=== PATIENT | female | born 1990 | race Caucasian/White ===

== ENCOUNTER 2019-06-07 12:56 | Emergency (ER) | payer OTHER ==
[2019-06-07 13:03] VITALS: BMI 29.7
--- NOTE | 2019-06-07 13:06 | PDOC ---
Rapid Medical Evaluation Time Seen by Provider: 06/07/19 13:00 Medical Evaluation: Allergies Allergy/AdvReac Type Severity Reaction Status Date / Time No Known Allergies Allergy Verified 02/22/18 23:34 06/07/19 13:01 CC: Right pelvic pain with vaginal bleeding- Seen at [facility] and told she may have an ectopic . LMP- "end of April." Labs show Beta-776. TVUS- No IUP identified. Right ovarian cyst. PE: deferred Orders: labs, TVUS Patient will proceed to ED for further evaluation. 06/07/19 13:05 Discharge Disposition - Diagnosis Pelvic pain affecting in first trimester, antepartum - Referrals - Patient Instructions - Post Discharge Activity
--- NOTE | 2019-06-07 13:29 | PDOC ---
History of Present Illness - General Chief Complaint: Pain Stated Complaint: ECTOPIC PRENANCY/ ABD.PAIN Time Seen by Provider: 06/07/19 13:00 History Source: Patient Exam Limitations: No Limitations - History of Present Illness Initial Comments: 06/07/19 13:29 28y previously healthy F unknown gestational age presenting w RLQ pain and vaginal bleeding. Yesterday afternoon went to [facility] w lower AB pain and bleeding, dx with non-visualized ectopic w free fluid (see US read below), HCG-778, LMP end of April, was scheduled for surgery but left AMA d/t unsatisfaction w OBGYN attitude and slow speed. RLQ pelvic pain and vaginal bleeding restarted 6am this morning. Last ate/drank 2am today, did not take any pain meds. Denies fever, nausea/vomiting, chest pain, SOB, urinary symptoms. [facility] US read: US showed 3x2mm anechoic avascular focus in L uterine fundus at endometrial/ myometrial junction without yolk sac or pole. no definite intrauterine gestational sac visualized. Moderate free fluid in pelvic, R ovary hemorrhagic cyst [id number]. Ectopic could not be excluded No OBGYN Past History - Past Medical History Allergies/Adverse Reactions: Allergies Allergy/AdvReac Type Severity Reaction Status Date / Time No Known Allergies Allergy Verified 06/07/19 13:03 Home Medications: Ambulatory Orders Vitamins (Sjr) - 1 tab PO DAILY 02/22/18 Cardiac Disorders: Yes (MURMUR) COPD: No - Psycho Social/Smoking Cessation Hx Smoking History: Never smoked Review of Systems - Review of Systems Constitutional: No: Chills, Fever HEENTM: No: Eye Pain, Nose Pain, Throat Pain, Mouth Pain Respiratory: No: Cough, Shortness of Breath Cardiac (ROS): No: Chest Pain, Palpitations, Syncope ABD/GI: No: Abdominal Distended, Constipated, Diarrhea, Nausea, Vomiting : No: Burning, Dysuria, Discharge, Hematuria Musculoskeletal: No: Back Pain, Joint Pain Integumentary: No: Bruising, Flushing, Lesions Neurological: No: Headache, Seizure, Tingling Psychiatric: No: Anxiety, Depression, Stressors Endocrine: No: Excessive Sweating, Flushing, Intolerance to Cold, Intolerance to Heat Hematologic/Lymphatic: No: Anemia, Easy Bleeding *Physical Exam - Vital Signs Last Vital Signs Temp Pulse Resp BP Pulse Ox 97.7 F 96 H 18 99/70 99 06/07/19 12:59 06/07/19 12:59 06/07/19 12:59 06/07/19 12:59 06/07/19 12:59 - Physical Exam General Appearance: Yes: Nourished, Appropriately Dressed, Mild Distress HEENT: positive: EOMI, PUMA, Normal Voice, Hearing Grossly Normal. negative: Scleral Icterus (R), Scleral Icterus (L), Nasal Congestion, Rhinorrhea Respiratory/Chest: positive: Lungs Clear, Normal Breath Sounds. negative: Chest Tender, Respiratory Distress, Crackles, Rales, Rhonchi, Stridor, Wheezing Cardiovascular: positive: Regular Rhythm, Regular Rate, S1, S2. negative: Edema , Murmur Female Pelvic Exam: positive: normal external exam, cervical os closed, normal adnexa, vaginal bleeding. negative: CMT, discharge, lesions Gastrointestinal/Abdominal: positive: Normal Bowel Sounds, Tender (moderate R pelvic ), Flat, Soft. negative: Organomegaly, Distended, Guarding, Rebound, Mass Musculoskeletal: negative: CVA Tenderness (R), CVA Tenderness (L) Extremity: positive: Delayed Capillary Refill Integumentary: positive: Normal Color, Dry. negative: Rash, Bruising Neurologic: positive: coffee taster II-XII NML intact, Fully Oriented, Alert, Normal Mood/ Affect, Responsive. negative: Sensory Deficit, Confused, Disoriented ED Treatment Course - LABORATORY CBC & Chemistry Diagram: 06/07/19 14:20 06/07/19 14:20 Medical Decision Making - Medical Decision Making 06/07/19 13:53 EKG NSR, TWI V1-3, HR 80, QTc 440 US shows normal size uterus and endometrium thickness without evidence of viable intrauterine gestation, complex free fluid in cul-de-sac, complex R ovarian cyst 4.2x3.7x3.7cm likely hemorrhagic, simple L ovarian cyst 1.6x1.4x1.7cm pelvic exam - closed cervical os, gross blood in vaginal vault, no cervical/ ovarian tenderness HCG 976 --- 28y previously healthy F unknown gestational age presenting w RLQ pain and vaginal bleeding d/t ectopic vs viable IUP. HCG too low to visualize fetus. Low concern for ACS (no chest pain, SOB) vs miscarriage (rising HCG) vs UTI (clean UA). Given 1L NS, tylenol Consulted OBGYN Dr Willingham - advised too early HCG to visualize ectopic vs viable IUP, pt [facility] tomorrow to recheck HCG DC home w f/u tomorrow, OBGYN f/u Discharge - Discharge Information Problems reviewed: Yes Clinical Impression/Diagnosis: Pelvic pain affecting in first trimester, antepartum Condition: Stable Disposition: HOME - Admission No - Follow up/Referral Referrals: Pino Willingham MD [Staff Physician] - - Patient Discharge Instructions Patient Printed Discharge Instructions: DI for Ectopic Additional Instructions: You were seen for abdominal pain and bleeding. You are . Please follow up at the [facility] tomorrow to recheck your hormone levels. Follow up with the referred OBGYN Dr Willingham regarding your Take tylenol if you have pain Come back to the ED if you have worsening pain, lose consciousness, or trouble breathing - Post Discharge Activity
[2019-06-07] MEDS ORDERED: SODIUM CHLORIDE 0.9% 500 ML INFUS.BAG IV ONE (13:36)
[2019-06-07] MEDS ORDERED: ACETAMINOPHEN 1000 MG/100 ML VIAL (NON FORMULARY) IVPB ONE ×2 (13:36→15:53)
--- NOTE | 2019-06-07 15:30 | PDOC ---
Attending Attestation - Resident Resident Name: Camden Sorenson - ED Attending Attestation I have performed the following: I have examined & evaluated the patient, The case was reviewed & discussed with the resident, I agree w/resident's findings & plan - HPI HPI: 06/07/19 15:25 Healthy 28-year-old female s/p procedural VTOP March, LMP end of April /early May now presents from outside hospital ER with concern for ectopic . Patient began having suprapubic discomfort with vaginal bleeding over the last 2 or 3 days, increased pain yesterday so she went to outside hospital ED, where repeat was confirmed (patient reports that she did indeed have a negative test since her VTOP in March, so this positive test appears to be a new ) and ultrasound showed right hemorrhagic cyst which was concerning for ectopic , they were scheduling for OR but patient signed out and presents here for second opinion and reevaluation. Patient's pain has improved, vaginal bleeding is light without clots, no fevers or chills, no diffuse abdominal pain. - Physicial Exam PE: 06/07/19 15:27 Vital signs normal, heart rate 80 on my examination, blood pressure normal Well-appearing seated comfortably in stretcher, no jaundice or pallor, moist mucosa Heart is regular, lungs are clear Abdomen is soft/nondistended. Discomfort to palpation in the left lower quadrant, no guarding or rebound, no CVA tenderness, pelvic as noted - Medical Decision Making 06/07/19 15:30 Healthy 28-year-old female status post voluntary termination of in March, now with new with LMP about 4 weeks ago presents for evaluation of possible ectopic diagnosed at outside hospital. Given reported hCG levels, question hemorrhagic cyst with early versus ectopic, patient is hemodynamically stable here with benign abdominal exam. Check labs including hCG level Type and screen EBUS IV fluids Reassess Heart Score/ECG Review #1 ECG reviewed & interpreted by me at: 14:40 General ECG Interpretation: Sinus Rhythm, Normal Rate (80), Normal Intervals ( qtc 440), No acute ischemic changes (isolated twi V3)
[2019-06-07 15:31] LABS: ALBUMIN 4.4 g/dl (3.4-5.0); BILIRUBIN,TOTAL 0.6 mg/dL (0.2-1); BLOOD UREA NITROGEN 8.8 mg/dL (7-18); CALCIUM 9.3 mg/dL (8.5-10.1); CREATININE 0.7 mg/dL (0.55-1.3); POTASSIUM 3.9 mmol/L (3.5-5.1); TOT PROT 7.9 g/dl (6.4-8.2)
[2019-06-07 15:48] LABS: BASO % 0.5 % (0-2.0); EOS % 2.3 % (0-4.5); HEMATOCRIT 37.8 % (32.4-45.2); HEMOGLOBIN 12.9 GM/dL (10.7-15.3); LYMPH % 35.2 % (8-40); MCH 32.5 pg (25.7-33.7); MCHC 34.2 g/dl (32.0-36.0); MEAN CELL VOLUME 95.1 fl (80-96); MEAN PLT VOLUME 9.1 fl (7.5-11.1); MONO % 6.8 % (3.8-10.2); NEUT % 55.2 % (42.8-82.8); PLATELET COUNT 326 K/MM3 (134-434); RBC 3.98 M/mm3 (3.60-5.2); RDW 12.6 % (11.6-15.6); WHITE BLOOD COUNT 8.7 K/mm3 (4.0-10.0)
[2019-06-07] MEDS ORDERED: ACETAMINOPHEN INJECTION 100 ML IVPB ONE (15:57)
[2019-06-07 16:16] LABS: INR 1.08 (0.83-1.09); PROTHROMBIN TIME (PATIENT) 12.8 SEC (9.7-13.0)
[2019-06-07 16:17] LABS: EPI CELLS 4.4 /HPF (0-5/HPF); HYALINE CASTS 2 /lpf (0-8); URINE APPEARANCE CLOUDY; URINE BACTERIA 100.1 /hpf (NEGATIVE); URINE BILIRUBIN NEGATIVE (NEGATIVE); URINE COLOR YELLOW; URINE GLUCOSE (UA) NEGATIVE (NEGATIVE); URINE KETONE TRACE (NEGATIVE); URINE LEUK ESTERASE TRACE (NEGATIVE); URINE NITRITE NEGATIVE (NEGATIVE); URINE PROTEIN TRACE (NEGATIVE); URINE RBC 324 /hpf (0-4); URINE WBC 5 /hpf (0-5)
[2019-06-07 16:19] LABS: ACTIVATED PTT 33.6 SECONDS (25.2-36.5)
[2019-06-07 17:17] VITALS: BP 116/69; PULSE 92; TEMP 98.7
--- NOTE | 2019-06-08 10:22 | EKG ---
Test Reason : Blood Pressure : / mmHG Vent. Rate : 080 BPM Atrial Rate : 080 BPM P-R Int : 122 ms QRS Dur : 088 ms QT Int : 382 ms P-R-T Axes : 004 054 041 degrees QTc Int : 440 ms NORMAL SINUS RHYTHM T WAVE ABNORMALITY, CONSIDER ANTERIOR ISCHEMIA ABNORMAL ECG NO PREVIOUS ECGS AVAILABLE Confirmed by MD Anitha, Luisito ([id number]) on 06/08/2019 10:21:58 AM Referred By: Confirmed By:Luisito Welsh MD
== END 2019-06-07 17:15 | disposition home or self-care (01) ==
LOC: JER 12:56
DX: O26.891 Other specified pregnancy related conditions, first trimester (principal); R10.2 Pelvic and perineal pain; O34.81 Maternal care for other abnormalities of pelvic organs, first trimester; N83.292 Other ovarian cyst, left side; N83.291 Other ovarian cyst, right side; Z3A.00 Weeks of gestation of pregnancy not specified
CPT/HCPCS: 36415; 76817-TC; 80053; 81003; 84702; 85025; 85610; 85730; 86850; 86900; 86901; 87086; 93005; 93010; 99282-25; J0131

== ENCOUNTER 2019-06-07 21:11 | Day surgery (SDC) | payer OTHER ==
[2019-06-07] MEDS ORDERED: ONDANSETRON 4 MG/2 ML VIAL IVPB ONE (21:48)
[2019-06-07] MEDS ORDERED: morphine CARPU-JECT 4 MG/1 ML DISP.SYRIN IVPUSH ONE ×2 (21:54→21:56)
--- NOTE | 2019-06-07 22:06 | PDOC ---
History of Present Illness <Mohini Coppola - Last Filed: 06/08/19 00:45> - General History Source: Patient Exam Limitations: No Limitations - History of Present Illness Initial Comments: 28 y/o F, status unknown, LMP in late april, presents to the ED, after being discharged 4 hours ago, for abdominal pain, RLQ>LLQ and vaginal bleed of 1 day duration, associated with n/v. Pt was seen earlier today for vaginal bleed and abdominal pain for which she underwent a transvaginal US which showed normal uterus, endometrial thickness and a right cyst likely hemorrhagic w/ free fluid in cul-de-sac. In the ED, pelvic exam revealed her OS to be closed with minimal bleeding in the vault. Pt was seen in [facility] for similar symptoms, for which surgery was suggested and pt walked out AMA. She was given zofran and 1mg morphine for pain. Denies f/c/sob/chest pain. 06/07/19 22:41 06/07/19 22:42 Associated Symptoms: reports: denies symptoms, nausea/vomiting. denies: chest pain, cough, diaphoresis, fever/chills, headaches <Haroldo Burnette - Last Filed: 06/08/19 00:59> - General Chief Complaint: Vaginal Bleeding Stated Complaint: ABD PAIN Past History <Mohini Coppola - Last Filed: 06/08/19 00:45> - Travel Traveled outside of the country in the last 30 days: No Close contact w/someone who was outside of country & ill: No - Past Medical History Cardiac Disorders: Yes (MURMUR) COPD: No - Psycho Social/Smoking Cessation Hx Smoking History: Never smoked <Haroldo Burnette - Last Filed: 06/08/19 00:59> - Past Medical History Allergies/Adverse Reactions: Allergies Allergy/AdvReac Type Severity Reaction Status Date / Time No Known Allergies Allergy Verified 06/07/19 21:53 Home Medications: Ambulatory Orders NK [No Known Home Medication] 06/07/19 Review of Systems - Review of Systems Able to Perform ROS?: Yes Is the patient limited Micronesian proficient: No Constitutional: Yes: Symptoms Reported, Weight Stable. No: Chills, Diaphoresis , Fever, Loss of Appetite HEENTM: Yes: Symptoms Reported. No: Nose Bleeding, Mouth Swelling Respiratory: Yes: Symptoms reported. No: Cough, Shortness of Breath, Productive cough Cardiac (ROS): Yes: Symptoms Reported. No: Chest Pain, Chest Tightness ABD/GI: Yes: Symptoms Reported, Vomiting, Abdominal cramping. No: Abdominal Distended, Diarrhea, Nausea : No: Burning, Dysuria, Discharge (vaginal bleeding) <Haroldo Burnette - Last Filed: 06/08/19 00:59> *Physical Exam - Vital Signs Last Vital Signs Temp Pulse Resp BP Pulse Ox 97.9 F 98 H 20 116/72 100 06/07/19 21:20 06/07/19 21:20 06/07/19 21:20 06/07/19 21:20 06/07/19 21:20 <Mohini Coppola - Last Filed: 06/08/19 00:45> - Physical Exam General Appearance: Yes: Nourished, Appropriately Dressed, Apparent Distress HEENT: positive: EOMI, PUMA, Normal ENT Inspection, Pharynx Normal Neck: positive: Trachea midline, Normal Thyroid, Supple Respiratory/Chest: positive: Lungs Clear, Normal Breath Sounds. negative: Crackles, Wheezing Cardiovascular: positive: Regular Rhythm, Regular Rate, S1, S2. negative: Murmur, Gallop/S3, Gallop/S4 Vascular Pulses: Dorsalis-Pedis (R): 2+, Doralis-Pedis (L): 2+ Female Pelvic Exam: positive: cervical os closed, adnexal tenderness, vaginal bleeding. negative: discharge Gastrointestinal/Abdominal: positive: Normal Bowel Sounds, Soft, Guarding, Rebound, Tenderness Neurologic: positive: Fully Oriented, Alert, Normal Mood/Affect <Haroldo Burnette - Last Filed: 06/08/19 00:59> ED Treatment Course - LABORATORY CBC & Chemistry Diagram: 06/07/19 22:25 - ADDITIONAL ORDERS Additional order review: Laboratory Results 06/07/19 22:25 Beta HCG, Quant 942.1 06/07/19 22:25 RBC 3.90 MCV 96.0 MCHC 33.8 RDW 12.7 MPV 8.8 Neutrophils % 75.7 D Lymphocytes % 16.2 D Monocytes % 6.7 Eosinophils % 1.0 Basophils % 0.4 - Medications Given in the ED: ED Medications Discontinued Medications Generic Name Dose Route Start Last Admin Trade Name Freq PRN Reason Stop Dose Admin Morphine Sulfate 1 mg 06/07/19 21:56 06/07/19 22:30 Morphine Injection - IVPUSH 06/07/19 21:57 1 mg ONCE ONE Administration Ondansetron HCl 8 mg 06/07/19 21:48 06/07/19 22:30 Zofran Injection IVPB 06/07/19 21:49 8 mg ONCE ONE Administration Sodium Chloride 1,000 ml 06/07/19 23:30 06/08/19 00:36 Normal Saline - IV 06/07/19 23:31 1,000 ml ONCE ONE Administration <Mohini Coppola - Last Filed: 06/08/19 00:45> - LABORATORY CBC & Chemistry Diagram: 06/07/19 22:25 <Haroldo Burnette - Last Filed: 06/08/19 00:59> Medical Decision Making - Medical Decision Making 28 y/o F, status unknown, LMP in late april, presents to the ED, after being discharged 4 hours ago, for abdominal pain, RLQ>LLQ and vaginal bleed of 1 day duration, associated with n/v #Abdominal pain and Vaginal bleed likely 2/2 to hemorrhagic cyst rupture vs ovarian torsion vs ectopic pelvic exam - closed cervical os, minimal blood in vaginal vault US Done at 12 pm shows normal size uterus and endometrium thickness without evidence of viable intrauterine gestation, complex free fluid in cul-de-sac, complex R ovarian cyst 4.2x3.7x3.7cm likely hemorrhagic, simple L ovarian cyst 1.6x1.4x1.7cm R/p Transvaginal US ordered- will f/u- r/o ruptured cyst HCG 976 in the afternoon R/p HCG CBC ordered Discussed with Dr. Willingham, who suggests taking pt in for surgery Discussed with pt and her family, they agree to surgery Will move forward with surgery 06/07/19 22:48 06/07/19 22:49 06/08/19 00:33 <Haroldo Burnette - Last Filed: 06/08/19 00:59> Discharge - Discharge Information Problems reviewed: Yes - Admission Yes <Mohini Coppola - Last Filed: 06/08/19 00:45> - Discharge Information Problems reviewed: Yes - Admission Yes <Haroldo Burnette - Last Filed: 06/08/19 00:59> - Discharge Information Clinical Impression/Diagnosis: Hemorrhagic cyst Qualifiers: Weeks of gestation: unspecified Qualified Code(s): Z34.90 - Encounter for supervision of normal , unspecified, unspecified trimester
[2019-06-07] MEDS ORDERED: MORPHINE SULFATE 2 MG/ML VIAL ONE (22:18)
[2019-06-07] MEDS ORDERED: ONDANSETRON 4 MG/2 ML VIAL ONE (22:18)
[2019-06-07 22:40] LABS: BASO % 0.4 % (0-2.0); HEMATOCRIT 37.5 % (32.4-45.2); HEMOGLOBIN 12.7 GM/dL (10.7-15.3); LYMPH % 16.2 % (8-40); MCH 32.4 pg (25.7-33.7); MCHC 33.8 g/dl (32.0-36.0); MEAN PLT VOLUME 8.8 fl (7.5-11.1); MONO % 6.7 % (3.8-10.2); NEUT % 75.7 % (42.8-82.8); PLATELET COUNT 324 K/MM3 (134-434); RDW 12.7 % (11.6-15.6); WHITE BLOOD COUNT 14.4 K/mm3 (4.0-10.0)
[2019-06-07] MEDS ORDERED: SODIUM CHLORIDE 0.9% 500 ML INFUS.BAG IV ONE (23:30)
--- NOTE | 2019-06-07 23:31 | PDOC ---
Documentation entered by Tyrone Mccormick SCRIBE, acting as scribe for Mohini Coppola MD. Mohini Coppola MD: This documentation has been prepared by the Jace suarez Nirvannie, SCRIBE, under my direction and personally reviewed by me in its entirety. I confirm that the documentation accurately reflects all work, treatment, procedures, and medical decision making performed by me. Attending Attestation - Resident Resident Name: Haroldo Burnette - ED Attending Attestation I have performed the following: I have examined & evaluated the patient, The case was reviewed & discussed with the resident, I agree w/resident's findings & plan, Exceptions are as noted - HPI HPI: 06/07/19 22:25 The patient is a 28 year old female , with no significant past medical history, who presents to the emergency department with 1 day of vaginal bleeding and progressively worsening lower abdominal pain. Patient was evaluated in the ER earlier today for vaginal bleeding and discharged with [facility] follow-up to trend beta HCG. Patient was evaluated at [facility] for her symptoms yesterday and scheduled for surgery but signed out AMA. Patient notes she returned to the ED after worsening abdominal pain. Patient had an elective in March. She denies recent fevers, chills, headache or dizziness. She denies recent nausea, vomiting, diarrhea or constipation. She denies recent dysuria, frequency, urgency or hematuria. She denies recent chest pain or shortness of breath. Allergies: NKA LMP: Late April - Physicial Exam PE: 06/07/19 23:07 awake alert lungs clear bilat heart rrr no mrg abd soft mild suprapubic ttp, rlq ttp. pos rebound. no guarding. nd ext wwp. 06/07/19 23:30 - Medical Decision Making 06/07/19 23:09 28 yo F here for repeat evaluation for worsening abd pain and vaginal bleeding. was seen in [facility] yesterday told she has possible ectopic and wanted to take her to the OR. today she came for repeat evlauation. stil having vaginal bleeding. had bhcg earlier 700 , small ff, empty uterus and hemorrhagic cyst. dc home. here again for repeat evluation as pain has become more severe. no dizziness not lightheaded. plan r/o worsening hemorrhagic cyst, ectopic, anemia, plan labs pain control tvus. tvus with persistant likley hemorrhagic cyst, FF. slightly increased. can't r/o ectopic. bhcg slightly decreased. cbc stable hgb. consulted dr. sanchez . 06/07/19 23:40 06/08/19 00:23 d/w dr sanchez and patient. due o fact pain is severe and worsening, will take to OR to r/o ectopic, evl hemorrhagic cyst. pt agreeable.
[2019-06-08] MEDS ORDERED: PROPOFOL 20 ML ONE (01:17)
[2019-06-08] MEDS ORDERED: ROCURONIUM BROMIDE 50 MG/5 ML SYRINGE ONE (01:17)
[2019-06-08] MEDS ORDERED: SUCCINYLCHOLINE CHLORIDE 200 MG/10 ML SYRINGE ONE (01:17)
--- NOTE | 2019-06-08 01:17 | HP ---
Admitting History and Physical - Primary Care Physician PCP: Pino Willingham - Admission Chief Complaint: Severe worsening RLQ pain History of Present Illness: Patient presents to ER for the second time with serum hcg in 900's and severe worsening abdominal pain. Sono equivocal for hemorrhagic cyst vs possible rupture ectopic . Patient reports vaginal bleeding. She was sent home earlier today but returned with worsening condition. Patient also reports undergoing evaluation at a different ER yesterday and signing AMA after declining surgical intervention for suspected ectopic . 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: Alzheimer's, CVA, Dementia, Migraine, Multiple Sclerosis, Peripheral Neuropathy, Parkinson's, Seizure, Syncope, TIA, Vertigo, Other Cardiovascular: Yes: Other (heart murmur) Pulmonary: No: Asthma, Bronchitis, Cancer, COPD, O2 Dependent, Pneumonia, Previously Intubated, Pulmonary Embolus, Pulmonary Fibrosis, Sleep Apnea, Other Gastrointestinal: No: Ascites, Cancer, Constipation, Crohn's Disease, Diverticulitis, Diverticulosis, Esophageal Varices, Gastritis, GERD, GI Bleed, Hemorrhoids, Hiatal Hernia, Inflamatory Bowel Disease, Irritable Bowel Disease, Pancreatitis, Peptic Ulcer Disease, Ulcerative Colitis, Other Hepatobiliary: No: Cirrhosis, Cholelithiasis, Cholecystitis, Choledocholithiasis , Hepatitis A, Hepatitis B, Hepatitis C, Other Renal/: No: Renal Failure, Renal Inusuff, BPH, Cancer, Hematuria, Hemodialysis , Neurogenic Bladder, Renal Calculi, UTI, Other ...: Yes ...: 4 ...Para: 2 Heme/Onc: No: Anemia, B12 Deficiency, Bleeding Disorder, Cancer, Current Chemotherapy, Current Radiation Therapy, Hemochromatosis, Hypercoaguable State, Myeloproliferative Synd, Sickle Cell Disease, Sickle Cell Trait, Thrombocytopenia, Other Infectious Disease: No: AIDS, C-Diff, Herpes Zoster, HIV, MRSA, STD's, Tuberculosis, VREF, Other Psych: No: Addictions, Anxiety, Bipolar, Depression, Panic, Psychosis, Schizophrenia, Other Musculoskeletal: No: Bursitis, Chronic low back pain, Hemiparesis, Hemiplegia, Osteoarthritis, Paraplegia, Other Rheumatology: No: Fibromyalgia, Gout, Lupus, Rheumatoid Arthritis, Sarcoidosis, Vasculitis, Other ENT: No: Allergic Rhinitis, Sinusitis, Other Endocrine: No: [place]'s Disease, Maritza's Disease, Diabetes Insipidus, Diabetes Mellitus, Hyperparathyroidism, Hyperthyroidism, Hypothyroidism, Osteopenia, SIADH, Other Dermatology: No: Basal Cell, Cellulitis, Eczema, Melanoma, Psoriasis, Squamous Cell, Other - Past Surgical History Additional Past Surgical History: liposuction - Smoking History Smoking history: Never smoked - Alcohol/Substance Use Hx Alcohol Use: No History of Substance Use: reports: None Home Medications - Allergies Allergies/Adverse Reactions: Allergies Allergy/AdvReac Type Severity Reaction Status Date / Time No Known Allergies Allergy Verified 06/07/19 21:53 - Home Medications Home Medications: Ambulatory Orders NK [No Known Home Medication] 06/07/19 Review of Systems - Review of Systems Constitutional: reports: No Symptoms Eyes: reports: No Symptoms HENT: reports: No Symptoms Neck: reports: No Symptoms Cardiovascular: reports: No Symptoms Respiratory: reports: No Symptoms Gastrointestinal: reports: Abdominal Pain (severe RLQ pain) Genitourinary: reports: Vaginal Bleeding Breasts: reports: No Symptoms Reported Musculoskeletal: reports: No Symptoms Integumentary: reports: No Symptoms Neurological: reports: No Symptoms Endocrine: reports: No Symptoms Hematology/Lymphatic: reports: No Symptoms Psychiatric: reports: No Symptoms Physical Examination Vital Signs: Vital Signs Temperature 97.9 F 06/07/19 21:20 Pulse Rate 98 H 06/07/19 21:20 Respiratory Rate 20 06/07/19 21:20 Blood Pressure 116/72 06/07/19 21:20 O2 Sat by Pulse Oximetry (%) 100 06/07/19 21:20 Constitutional: Yes: Other (mild distress) HENT: Yes: Atraumatic Neck: Yes: Supple Cardiovascular: Yes: Regular Rate and Rhythm Respiratory: Yes: Regular Gastrointestinal: Yes: Soft, Other (tenderness to palpation in RLQ and LFQ. Guarding on exam and no rebound) ...Rectal Exam: Yes: Deferred Breast(s): Yes: Other (deferred) Extremities: Yes: Other (right left pain) Edema: LLE: Trace, RLE: Trace Integumentary: Yes: WNL Wound/Incision: Yes: Well Approximated Neurological: Yes: Alert, Oriented ...Motor Strength: WNL Psychiatric: Yes: Alert, Oriented Labs: CBC, BMP 06/07/19 22:25 Imaging - Results Ultrasound: Report Reviewed, Image Reviewed (x 2) Problem List - Problems (1) Encounter for assessment for suspected ectopic Code(s): Z32.00 - ENCOUNTER FOR TEST, RESULT UNKNOWN Assessment/Plan 28 y/o presenting for severe abdominal pain concerning for possible ectopic . Patient reports undergoing evaluation at a different ER yesterday and left AMA after being told that she needed surgery for ectopic . Patient was counseled regarding possible diagnoses and clinical indication for exploratory laparoscopy with possible D&C. Risks and complications of the procedure discussed and all questions answered. -Proceed with surgery
[2019-06-08] MEDS ORDERED: BUPIVACAINE HCL/PF 0.5% (5 MG/ML) 30 ML VIAL IJ ONE ×2 (02:16→02:30)
[2019-06-08] MEDS ORDERED: DEXAMETHASONE SOD PHOSPHATE 4 MG/1 ML VIAL ONE (02:18)
[2019-06-08] MEDS ORDERED: ONDANSETRON 4 MG/2 ML VIAL IVPUSH PRN (03:14)
[2019-06-08] MEDS ORDERED: LACTATED RINGERS SOLUTION 1,000 ML IV SCH (03:15)
[2019-06-08] MEDS ORDERED: NEOSTIGMINE METHYLSULFATE 0.5 MG/ML - 10 ML MDV ONE (03:21)
[2019-06-08] MEDS ORDERED: GLYCOPYRROLATE 0.2 MG/1 ML VIAL ONE (03:21)
[2019-06-08] MEDS ORDERED: ACETAMINOPHEN 1000 MG/100 ML VIAL (NON FORMULARY) IVPB ONE ×2 (03:45→04:42)
[2019-06-08] MEDS ORDERED: ACETAMINOPHEN INJECTION 100 ML IVPB ONE (03:50)
[2019-06-08] MEDS ORDERED: ACETAMINOPHEN 325 MG TABLET (FP) PO PRN (03:59)
[2019-06-08] MEDS ORDERED: SODIUM CHLORIDE 1,000 ML IV SCH (04:00)
[2019-06-08] MEDS ORDERED: IBUPROFEN 600 MG TABLET (FP) PO PRN (04:04)
--- NOTE | 2019-06-08 04:24 | OP ---
Operative Note - Note: Operative Date: 06/08/19 (DIC # [id number]) Pre-Operative Diagnosis: Ruptured Ectopic Operation: Laparoscopic right salpingectomy and D&C Findings: see dictation Implants: none Post-Operative Diagnosis: Same as Pre-op Surgeon: Pino Willingham Anesthesia: General Specimens Removed: right fallopian tube and ectopic , Endometrial curettage Estimated Blood Loss (mls): 300 Fluid Volume Replaced (mls): 1,800 Operative Report Dictated: Yes
--- NOTE | 2019-06-08 04:27 | DS ---
Physical Examination Vital Signs: Vital Signs Temperature 98.4 F 06/08/19 03:35 Pulse Rate 69 06/08/19 04:15 Respiratory Rate 14 06/08/19 04:15 Blood Pressure 104/55 L 06/08/19 04:15 O2 Sat by Pulse Oximetry (%) 98 06/08/19 04:15 Findings/Remarks: Patient is doing well, pain improved and intra-operative findings discussed Constitutional: Yes: Well Nourished HENT: Yes: Atraumatic Neck: Yes: Supple Cardiovascular: Yes: Regular Rate and Rhythm Respiratory: Yes: Regular Gastrointestinal: Yes: Normal Bowel Sounds, Soft ...Rectal Exam: Yes: Deferred Breast(s): Yes: Other (deferred) Musculoskeletal: Yes: WNL Extremities: Yes: WNL Edema: Yes Edema: LLE: Trace, RLE: Trace Integumentary: Yes: WNL Wound/Incision: Yes: Well Approximated (band-aids in place) Neurological: Yes: Alert, Oriented ...Motor Strength: WNL Psychiatric: Yes: Alert, Oriented Labs: CBC, BMP 06/07/19 22:25 Discharge Summary Problems reviewed: Yes Reason For Visit: HEMORRHAGIC CYST,ECTOPIC Current Active Problems Encounter for assessment for suspected ectopic (Acute) Hemorrhagic cyst (Acute) (Acute) Procedures: Principal: Laparoscopy Hospital Course: Patient discharged on stable condition following surgery Plan of Treatment: Follow up as outpatient Condition: Stable - Instructions Diet, Activity, Other Instructions: Return to regular diet and activity as to;lerated. Follow up in 1-2 weeks with MD. Call doctor or seek medical evaluation if severe nausea and vomiting, vaginal bleeding, and severe pain Referrals: Pino Willingham MD [Staff Physician] - Disposition: HOME - Home Medications Comprehensive Discharge Medication List: Ambulatory Orders Acetaminophen [Tylenol] 325 mg PO Q6H PRN #15 capsule MDD 5 06/08/19 Ibuprofen 600 mg PO Q6H PRN #15 tablet 06/08/19
[2019-06-08 05:27] VITALS: TEMP 97.3; BMI 32.3
--- NOTE | 2019-06-08 08:56 | OP ---
DATE OF OPERATION: 06/08/2019 PREOPERATIVE DIAGNOSIS: A 28-year-old 4, para 2-0-2-2, who presented to the emergency department multiple times with severe abdominal pain and suspected ruptured ectopic . POSTOPERATIVE DIAGNOSIS: A 28-year-old 4, para 2-0-2-2, who presented to the emergency department multiple times with severe abdominal pain and suspected ruptured ectopic . PROCEDURE PERFORMED: Exploratory laparoscopy, right salpingectomy, dilatation and curettage. SURGEON: Anjelica Willingham MD SOFTWARE DEVELOPER CONSULTANT: None. ANESTHESIA: General. INTRAVENOUS FLUIDS: Crystalloid 1800. ESTIMATED BLOOD LOSS: 300 mL of clear urine. COMPLICATIONS: None. FINDINGS: Normal anterior abdominal wall anatomy. Normal external genitalia and vaginal mucosa. The cervix was consistent with multiparity. The endometrial lining was scant. Intra-abdominal findings were consistent with a ruptured ectopic, an engorged and dilated distal right fallopian tube, hemoperitoneum for approximately 300 mL. A right 4-cm hemorrhagic ovarian cyst, non-ruptured. Left fallopian tube and ovary were consistent with normal anatomy. DESCRIPTION OF PROCEDURE: The patient was taken to the operating room, where anesthesia was found to be adequate. She was then prepped and draped in a normal sterile fashion. A Lester catheter was placed atraumatically. Time out took place. Attention was directed to the vaginal area, where metal retractors were utilized to visualize the cervix, which was grasped with a Chung tenaculum. The cervix was previously described. The os was progressively dilated with Hegar dilators. Systematic curetting of the endometrial cavity took place without difficulty. Specimen sent to Pathology. A HUMI manipulator was introduced to 8 cm and the balloon tip inflated. All instruments were retrieved from the vagina and attention then was redirected to the anterior abdominal wall. An infraumbilical incision was made with the scalpel to accommodate a Carlos trocar. Subcutaneous tissues were dissected off bluntly and the fascia elevated with Estevan clamps. The fascia was transected with Mast scissors as it was elevated with the Estevan clamps. Entry into the peritoneal cavity took place. A Carlos trocar was placed without difficulty and insufflating media activated. Proper placement confirmed with the scope. Inspection with the scope revealed moderate hemoperitoneum but no evidence of trauma or active bleeding at the point of entry or at the viscera immediately underneath it. A right lower quadrant 5-mm trocar was placed under constant visualization, without difficulty. The left fallopian tube and ovary were exposed with the atraumatic grasper and anatomy as described. The right fallopian tube was noted to be engorged and dilated, consistent with a ruptured ectopic. The right ovary with a hemorrhagic cyst of approximately 4.5 cm, not ruptured. The right fallopian tube was elevated and the mesosalpinx cauterized and transected with the LigaSure instrument. The entire tube affected by the ectopic was excised and placed in the anterior cul-de-sac. No bleeding from the surgical stump was noted. A 5-mm left lower quadrant trocar was placed with constant visualization, without difficulty. The scope was switched to the left lower quadrant port. The specimen was retrieved with an Endo Bag through the infraumbilical incision without difficulty. The pelvis and the abdomen were irrigated and suctioned out. No active bleeding or anomalies were noted. Secondary inspection revealed uncomplicated completed surgery. The right lower quadrant port was retrieved, followed by the left lower quadrant, under constant visualization. The scope was removed and all insufflation media evacuated from the abdomen. The infraumbilical fascia incision was reapproximated by tying the initially previously placed 0 Polysorb anchoring sutures. Excellent reapproximation achieved and fascial defect obliterated and confirmed by digital palpation by the surgeon. The skin was closed with subcuticular 4-0 Biosyn sutures. Attention then was redirected to the vaginal area, where the Lester catheter and uterine manipulator were retrieved without difficulty. No active bleeding noted. Procedure concluded. Instrument count was reported as correct x2 by the staff. The patient went to the recovery room in stable condition. ANJELICA WILLINGHAM MD [id number] MTDD
[2019-06-08 09:07] VITALS: BP 109/52; PULSE 83
--- NOTE | 2019-06-10 15:31 | PATH ---
Surgical Pathology Report Patient Name: AJ MANCINI [facility]. Rec. #: [id number] /Age/Gender: 1990 (Age: 28) / F Account: <[id number]> Location: EMERGENCY ROOM Taken: 06/08/2019 Received: 06/08/2019 Reported: 06/10/2019 Physicians: Pino Willingham MD Specimen(s) Received A: ENDOMETRIAL CURETTINGS B: RIGHT FALLOPIAN TUBE AND ETOPIC Clinical History Ectopic Final Diagnosis A. ENDOMETRIAL CURETTINGS, DILATION AND CURETTAGE: FRAGMENTS OF SECRETORY ENDOMETRIUM AND CERVICAL TISSUE WITH MILD ACUTE CERVICITIS. B. FALLOPIAN TUBE AND ECTOPIC , RIGHT, SALPINGECTOMY: CHORIONIC VILLI IN A BACKGROUND OF HEMORRHAGE PRESENT WITHIN THE FALLOPIAN TUBE, CONSISTENT WITH ECTOPIC . Electronically Signed Blanca Lehman M.D. Gross Description A. Received in formalin labeled "endometrial curettings," is a 2.8 x 2.0 x 0.3 cm aggregate of red-brown soft tissue fragments. The formalin is filtered and the specimen is entirely submitted in one cassette. B. Received in formalin labeled "right fallopian tube and ectopic," is a 5 cm in length dilated, fimbriated fallopian tube. The outer surface is roy purple and smooth. Sectioning reveals a dilated lumen containing red-brown blood clot. No definitive villous tissue or somatic tissue is identified. [employer] Supervisor sections are submitted in 4 cassettes as follows: 1-fimbria; 4-6-rqkdt-sections of fallopian tube. /06/08/2019 [facility]06/08/2019
== END 2019-06-08 11:34 | disposition home or self-care (01) ==
LOC: JER 21:11 → UNDOADMIN 06-08 00:46 → JERBED 06-08 00:46 → JASUSAT 06-08 01:09 → JERBED 06-08 05:08 → J6S 06-08 05:08 → JASUSAT 06-08 11:34 → UNDODISIN 06-08 11:34
PROVIDERS: ATTEND Emergency Medicine
PROC: 0UT54ZZ Resection of Right Fallopian Tube, Percutaneous Endoscopic Approach (ICD-10-PCS; principal; 2019-06-08 02:00)
PROC: 0UDB7ZX Extraction of Endometrium, Via Natural or Artificial Opening, Diagnostic (ICD-10-PCS; 2019-06-08 02:00)
DX: O00.101 Right tubal pregnancy without intrauterine pregnancy (principal)
CPT/HCPCS: 36415; 76817-TC; 84702; 85025; 94760; 99284-25; J0131

== ENCOUNTER 2023-05-16 10:48 | Emergency (ER) | payer OTHER ==
[2023-05-16 11:01] VITALS: BP 113/74; PULSE 97; RESP 16; TEMP 98; BMI 25.8
[2023-05-16 11:53] LABS: BASO % 0.7 % (0-2.0); EOS % 2.7 % (0-4.5); HEMATOCRIT 36.7 % (32.4-45.2); HEMOGLOBIN 12.6 GM/dL (10.7-15.3); LYMPH % 24.8 % (8-40); MCH 32.6 pg (25.7-33.7); MCHC 34.3 g/dl (32.0-36.0); MEAN PLT VOLUME 8.3 fl (7.5-11.1); NEUT % 64.8 % (42.8-82.8); PLATELET COUNT 266 10^3/uL (134-434); RBC 3.86 M/mm3 (3.60-5.2); RDW 12.3 % (11.6-15.6); WHITE BLOOD COUNT 9.1 K/mm3 (4.0-10.0)
[2023-05-16 12:01] LABS: INR 1.08 (0.83-1.09); PROTHROMBIN TIME (PATIENT) 12.5 SEC (9.7-13.0)
[2023-05-16 12:15] LABS: POTASSIUM 3.6 mmol/L (3.5-5.1)
[2023-05-16 12:18] LABS: BLOOD UREA NITROGEN 12.7 mg/dL (7-18); CALCIUM 8.9 mg/dL (8.5-10.1)
[2023-05-16 12:21] LABS: CREATININE 0.7 mg/dL (0.55-1.3)
[2023-05-16 12:23] LABS: BILIRUBIN,TOTAL 0.7 mg/dL (0.2-1); TOT PROT 7.1 g/dl (6.4-8.2)
[2023-05-16 15:14] LABS: EPI CELLS 17 /uL (0-25.1); HYALINE CASTS 0 /uL (0-3.1); PH,URINE 6.5 (5.0-8.0); URINE APPEARANCE CLEAR; URINE BACTERIA 112 /uL (0-1359); URINE BILIRUBIN NEGATIVE (NEGATIVE); URINE COLOR YELLOW; URINE GLUCOSE (UA) NEGATIVE (NEGATIVE); URINE KETONE 1+ (NEGATIVE); URINE LEUK ESTERASE NEGATIVE (NEGATIVE); URINE NITRITE NEGATIVE (NEGATIVE); URINE PROTEIN NEGATIVE (NEGATIVE); URINE RBC 625 /uL (0-23.9); URINE WBC 9 /uL (0-25.8)
== END 2023-05-16 16:56 | disposition home or self-care (01) ==
LOC: JER 10:48
DX: N93.9 Abnormal uterine and vaginal bleeding, unspecified (principal)
CPT/HCPCS: 36415; 76830-TC; 80053; 81003; 84702; 85025; 85610; 85730; 86850; 86900; 86901; 99284-25

== ENCOUNTER 2023-09-16 13:01 | Emergency (ER) | payer OTHER ==
[2023-09-16 13:13] VITALS: BP 108/63; PULSE 84; RESP 18; TEMP 98; BMI 29.0
[2023-09-16] MEDS ORDERED: ACETAMINOPHEN 325 MG TABLET (FP) ONE (14:21)
[2023-09-16] MEDS ORDERED: LIDOCAINE 4% PATCH TP ONE (14:21)
[2023-09-16 14:25] LABS: BASO % 0.7 % (0-2.0); EOS % 2.2 % (0-4.5); HEMATOCRIT 40.5 % (32.4-45.2); HEMOGLOBIN 13.5 GM/dL (10.7-15.3); LYMPH % 38.1 % (8-40); MCHC 33.4 g/dl (32.0-36.0); MEAN CELL VOLUME 95.9 fl (80-96); MEAN PLT VOLUME 7.9 fl (7.5-11.1); MONO % 6.2 % (3.8-10.2); NEUT % 52.8 % (42.8-82.8); PLATELET COUNT 320 10^3/uL (134-434); RBC 4.22 M/mm3 (3.60-5.2); RDW 12.2 % (11.6-15.6)
[2023-09-16] MEDS: LIDOCAINE 4% PATCH TP ONE (14:26)
[2023-09-16] MEDS: ACETAMINOPHEN 500 MG TABLET (FP) PO ONE (14:26)
[2023-09-16 14:29] LABS: HCG,QUALITATIVE URINE Negative
[2023-09-16 14:36] LABS: URINE APPEARANCE TURBID; URINE BILIRUBIN NEGATIVE (NEGATIVE); URINE COLOR ORANGE; URINE GLUCOSE (UA) NEGATIVE (NEGATIVE); URINE KETONE NEGATIVE (NEGATIVE)
[2023-09-16 14:37] LABS: PH,URINE 5.5 (5.0-8.0); URINE LEUK ESTERASE TRACE (NEGATIVE); URINE NITRITE NEGATIVE (NEGATIVE); URINE PROTEIN 1+ (NEGATIVE); URINE UROBILINOGEN 0.2 mg/dL (0.2-1.0)
[2023-09-16 14:52] LABS: CHLORIDE 107 mmol/L (98-107); POTASSIUM 3.9 mmol/L (3.5-5.1); SODIUM 140 mmol/L (136-145)
[2023-09-16 14:54] LABS: ANION GAP 3 mmol/L (4-13); BLOOD UREA NITROGEN 14.9 mg/dL (7-18); CALCIUM 9.5 mg/dL (8.5-10.1); CO2 30 mmol/L (21-32); GLUCOSE,RANDOM 90 mg/dL (74-106)
[2023-09-16 14:55] LABS: ALBUMIN 4.3 g/dl (3.4-5.0)
[2023-09-16 14:57] LABS: CREATININE 0.7 mg/dL (0.55-1.3); SGOT/AST 17 U/L (15-37); SGPT/ALT 22 U/L (13-61)
[2023-09-16 14:59] LABS: BILIRUBIN,TOTAL 0.5 mg/dL (0.2-1)
[2023-09-16 15:00] LABS: ALK PHOS 75 U/L (45-117)
[2023-09-16] MEDS ORDERED: LIDOCAINE PATCH REMOVAL MC SCH (22:00)
== END 2023-09-16 18:08 | disposition home or self-care (01) ==
LOC: JER 13:01
DX: O20.9 Hemorrhage in early pregnancy, unspecified (principal); O34.11 Maternal care for benign tumor of corpus uteri, first trimester; D25.9 Leiomyoma of uterus, unspecified; Z3A.01 Less than 8 weeks gestation of pregnancy
CPT/HCPCS: 36415; 76830-TC; 80053; 81003; 81015; 84702; 84703; 85025; 86850; 86900; 86901; 87086; 87491; 87591; 87661; 99284-25

== ENCOUNTER 2023-11-27 04:18 | Day surgery (SDC) | payer OTHER ==
[2023-11-24 11:35] VITALS: BMI 32.3
[2023-11-27] MEDS ORDERED: oxyCODONE HCL 5 MG TABLET PO PRN (07:58)
[2023-11-27] MEDS ORDERED: ONDANSETRON 4 MG/2 ML VIAL IVPUSH PRN (07:58)
[2023-11-27] MEDS ORDERED: LACTATED RINGERS SOLUTION 1,000 ML IV SCH (08:00)
[2023-11-27] MEDS ORDERED: MIDAZOLAM HCL 2 MG/2 ML SINGLE DOSE VIAL ONE (08:38)
[2023-11-27] MEDS ORDERED: FENTANYL CITRATE/PF 50 MCG/ML VIAL ONE ×2 (08:38→11:23)
[2023-11-27] MEDS ORDERED: ROCURONIUM BROMIDE 50 MG/5 ML SYRINGE ONE (08:39)
[2023-11-27] MEDS ORDERED: ONDANSETRON 4 MG/2 ML VIAL ONE (08:40)
[2023-11-27] MEDS ORDERED: KETOROLAC TROMETHAMINE 30 MG/1 ML VIAL ONE (08:40)
[2023-11-27] MEDS ORDERED: PROPOFOL 20 ML ONE ×2 (08:40→10:05)
[2023-11-27] MEDS ORDERED: LIDOCAINE HCL/PF 2% SDV 5ML VIAL ONE (08:40)
[2023-11-27] MEDS ORDERED: DEXAMETHASONE SOD PHOSPHATE 4 MG/1 ML VIAL ONE (08:40)
[2023-11-27] MEDS ORDERED: SUGAMMADEX SODIUM 200 MG/2 ML VIAL ONE (08:53)
[2023-11-27] MEDS ORDERED: BUPIVACAINE HCL/PF 0.5% (5MG/ML) 10 ML VIAL ONE (09:09)
[2023-11-27] MEDS ORDERED: ACETAMINOPHEN INJECTION 100 ML IVPB ONE (09:10)
[2023-11-27] MEDS: BUPIVACAINE HCL/PF 0.5% (5MG/ML) 10 ML VIAL IJ ONE ×2 (09:52)
[2023-11-27] MEDS ORDERED: HYDROmorphone HCl 2 MG/ML VIAL ONE (09:55)
[2023-11-27 12:30] VITALS: BP 94/54; PULSE 78; RESP 16; TEMP 97.5
== END 2023-11-27 13:55 | disposition home or self-care (01) ==
LOC: JASU-SURG 04:18
PROVIDERS: ATTEND Student in an Organized Health Care Education/Training Program
PROC: 0UT74ZZ Resection of Bilateral Fallopian Tubes, Percutaneous Endoscopic Approach (ICD-10-PCS; principal; 2023-11-27 09:30)
DX: Z30.2 Encounter for sterilization (principal)
CPT/HCPCS: 81025; 88305-TC; 94760; J0131

== ENCOUNTER 2024-03-03 20:57 | Emergency (ER) | payer OTHER ==
[2024-03-03 21:06] VITALS: BP 115/74; PULSE 96; RESP 18; TEMP 97.9; BMI 32.3
[2024-03-03] MEDS ORDERED: LIDOCAINE 4% PATCH TP ONE (23:03)
[2024-03-03] MEDS ORDERED: ACETAMINOPHEN 325 MG TABLET (FP) ONE ×2 (23:03→23:07)
[2024-03-03] MEDS: LIDOCAINE 5% TOPICAL PATCH TP ONE (23:22)
[2024-03-03] MEDS: ACETAMINOPHEN 500 MG TABLET (FP) PO ONE (23:22)
[2024-03-03] MEDS ORDERED: METOCLOPRAMIDE HCL INJECTION 10 MG/2 ML VIAL ONE (23:28)
[2024-03-03 23:34] LABS: BASO % 0.7 % (0-2.0); EOS % 3.1 % (0-4.5); HEMATOCRIT 36.5 % (32.4-45.2); HEMOGLOBIN 12.2 GM/dL (10.7-15.3); LYMPH % 37.9 % (8-40); MCH 31.9 pg (25.7-33.7); MCHC 33.4 g/dl (32.0-36.0); MEAN CELL VOLUME 95.5 fl (80-96); MONO % 8.5 % (3.8-10.2); NEUT % 49.8 % (42.8-82.8); PLATELET COUNT 320 10^3/uL (134-434); RBC 3.82 M/mm3 (3.60-5.2); RDW 12.5 % (11.6-15.6); WHITE BLOOD COUNT 11.3 K/mm3 (4.0-10.0)
[2024-03-03] MEDS: METOCLOPRAMIDE HCL INJECTION 10 MG/2 ML VIAL IVPB ONE (23:35)
[2024-03-03 23:51] LABS: POTASSIUM 3.9 mmol/L (3.5-5.1)
[2024-03-03 23:53] LABS: ALBUMIN 4.1 g/dl (3.4-5.0); CALCIUM 9.5 mg/dL (8.5-10.1)
[2024-03-03 23:54] LABS: BLOOD UREA NITROGEN 14.2 mg/dL (7-18)
[2024-03-03 23:57] LABS: CREATININE 0.7 mg/dL (0.55-1.3)
[2024-03-03 23:58] LABS: BILIRUBIN,TOTAL 0.2 mg/dL (0.2-1); TOT PROT 7.3 g/dl (6.4-8.2)
[2024-03-04 00:47] LABS: HIV INTERPRETATION NEGATIVE (NEGATIVE)
[2024-03-04] MEDS ORDERED: LIDOCAINE PATCH REMOVAL MC SCH (11:00)
== END 2024-03-04 01:13 | disposition home or self-care (01) ==
LOC: JER 20:57
PROC: 3E033GC Introduction of Other Therapeutic Substance into Peripheral Vein, Percutaneous Approach (ICD-10-PCS; principal; 2024-03-03)
DX: R51.9 Headache, unspecified (principal); Z20.822 Contact with and (suspected) exposure to COVID-19
CPT/HCPCS: 0241U-QW; 36415; 70450-TC; 80053; 85025; 86803; 87389; 93005; 93010; 99285-25